=== PATIENT | male | born 1995 | race Two or more races ===

== ENCOUNTER 2021-08-05 19:02 | Emergency (ER) | payer MEDICAID, SELFPAY ==
--- NOTE | ~2021-08-05 | XR_ITS ---
EXAMINATION: XR HAND, LEFT CLINICAL INFORMATION: Laceration at the anterior 3rd through 5th metacarpophalangeal joints. COMPARISON: None TECHNIQUE: PA, lateral, and oblique views of the left hand. FINDINGS: No radiopaque foreign body. No acute osseous abnormality. No fracture or dislocation. Normal carpal alignment. No joint space narrowing or marginal osteophytes. No osseous erosion. XR/XR hand LT min 3V IMPRESSION: Unremarkable examination.
[2021-08-05 20:05] VITALS: BP 122/80; PULSE 82; RESP 18; TEMP 36.4; O2SAT 99; BMI 23.7
[2021-08-05 20:18] VITALS: BP 130/93; PULSE 91; TEMP 37.4; O2SAT 98
--- NOTE | 2021-08-05 20:52 | ED.WOUNDLAC ---
HPI - Wound/Laceration General Chief Complaint: Wound/Laceration Stated Complaint: laceration on L hand Time Seen by Provider: 08/05/21 20:19 Source: patient Mode of arrival: ambulatory Limitations: no limitations History of Present Illness HPI narrative: 26-year-old male right-handed here with reports of laceration to the left hand. Patient tells me he went to catch a basketball with his left hand when his left 4th finger hyper extended causing a laceration to the base of the finger. No weakness, numbness, tingling. Last tetanus one year ago Related Data Previous Rx's Medication Instructions Recorded oxycodone 5 mg tablet 5 mg PO Q8H PRN #5 tab 08/05/21 Allergies Allergy/AdvReac Type Severity Reaction Status Date / Time No Known Allergies Allergy Verified 08/05/21 20:22 Review of Systems Review of Systems: Yes all other systems are reviewed and are negative Constitutional: Constitutional: Reports no additional constitutional complaints, Denies body ache(s), Denies chills, Denies fever(s), Denies headache(s) and Denies weakness Eyes: Eyes: Reports no additional eye complaints and Denies change in vision ENT: Reports system reviewed and no additional complaints, except as documented, Denies dizziness, Denies headache(s), Denies nasal congestion, Denies nasal discharge and Denies neck pain Cardiovascular: Cardiovascular: Reports no additional cardiovascular complaints, Denies chest pain, Denies leg edema and Denies dyspnea Respiratory: Respiratory: Reports no additional respiratory complaints, Denies cough and Denies dyspnea Gastrointestinal: Gastrointestinal: Reports no additional gastrointestinal complaints, Denies abdominal pain, Denies diarrhea, Denies nausea and Denies vomiting Genitourinary: Genitourinary: Denies urinary incontinence Musculoskeletal: Musculoskeletal: Reports no additional musculoskeletal complaints, Denies back pain, Reports arthralgias, Denies joint swelling, Denies neck pain, Denies numbness and Denies tingling Integumentary/Breasts: Skin/Breast: Reports system reviewed and no additional complaints, except as docu and Denies rash Comments: +lac Neurologic: Reports system reviewed and no additional complaints, except as documented, Denies Abnormal speech present, Denies dizziness, Denies headache(s), Denies numbness, Denies tingling and Denies weakness [facility] Past Medical History Attestation statement: The following information was validated with the patient. Source: old records reviewed and nursing notes reviewed Social History Social History Advance Directives: No Advance Directives Information Provided: No Physical Exam Vital Signs: Vital Signs: Last Vital Signs Temp 99.4 F 08/05/21 20:18 Pulse 91 08/05/21 20:18 Resp 18 08/05/21 20:05 BP 130/93 H 08/05/21 20:18 Pulse Ox 98 08/05/21 20:18 BMI result Body Mass Index 23.7 Const: General: cooperative, healthy appearing, comfortable and no acute distress Orientation/consciousness: patient oriented x3 Limitations: no limitations HEENT: Head: Yes normal to inspection Ears: hearing grossly normal bilaterally General nose exam: Normal external nose present Face and sinus: Yes normal facial exam Mouth: Normal oral and palatal mucosa present Throat: Yes posterior oropharynx normal Eyes: General: appearance normal, both eyes and all related structures Pupils: Equal, round and reactive pupils present Neck: Neck: Yes normal visual inspection Chest: Chest palpation & inspection: normal inspection of the chest Resp: Effort & Inspection: normal respiratory effort Auscultation: clear to auscultation bilaterally Cardio: Rate: regular rate Rhythm: regular rhythm Peripheral pulses: Peripheral pulses 2+ throughout GI: Inspection: Yes normal to inspection Palpation (GI): Soft to palpation and nontender Auscultation: normal bowel sounds Back/Spine/Pelvis: Thoracic/Lumbar Spine: thoracic and lumbar spine normal to inspection Skin: General skin exam: no rashes or lesions noted Neuro: General: patient oriented x3, no focal motor deficits and normal sensation to monofilament Cranial nerves: Yes Equal, round and reactive pupils present Cognition (Neuro): normal cognition Speech: No Abnormal speech present Gait exam (Neuro): Normal gait present Motor exam (neuro): 5/5 motor strength present throughout Extrem: General: Yes normal to inspection Hand/finger images: 1. Laceration which is on the volar aspect and extends interphalangeal to the dorsal aspect 5cm Patient able to flex and extend the digit with no difficulty 2. Course Course Course Narrative: 26-year-old male who is right-handed here with laceration to the base of the 4th digit which extends in between the 3rd and 4th digit over the dorsal aspect of the 4th digit. Bleeding is controlled. There is full range of motion of the digit with no tendon involvement. Neurovascularly intact distally to the injury. X-rays were ordered which show no bony abnormality. See procedure note for wound repair. Tetanus is already up-to-date. Patient placed in a soft finger foam splint. We discussed suture care at home. Reviewed worrisome signs and symptoms and when to return to the emergency department. Comfortable discharge home. MDM - Wound/Laceration Medical Records Attestation: I reviewed the patient's medical records. Lab Data Attestation: I reviewed the patient's lab results. Imaging Data hand xray: Attestation: I personally reviewed and interpreted this imaging study as follows: Radiologist's impression: XAMINATION: XR HAND, LEFT CLINICAL INFORMATION: Laceration at the anterior 3rd through 5th metacarpophalangeal joints. COMPARISON: None? TECHNIQUE: PA, lateral, and oblique views of the left hand. FINDINGS: No radiopaque foreign body. No acute osseous abnormality. No fracture or dislocation. Normal carpal alignment. No joint space narrowing or marginal osteophytes. No osseous erosion.? XR/XR hand LT min 3V IMPRESSION: Unremarkable examination. Procedures Laceration Laceration 1: Site: hand Side (If applicable): left (4th digit) Size (cm): 5 Description: linear Depth: simple, single layer Local Anesthetic: lidocaine 2% Amount of anesthesia used (mL): 15 Pre-repair: wound explored, irrigated extensively and deep structures intact Skin layer closed with: vicryl Size (cm): 5-0 Number of sutures: 11 Technique: simple, interrupted Discharge Plan Discharge Clinical Impression: Laceration Patient Disposition: Home, Self-Care Instructions: Finger Laceration (ED) Additional Instructions: Sutures out in 7-10 days Wash the area with soap and water daily Take Tylenol or Motrin for pain as needed. Do not bend the finger Water may run over the finger and you may take showers normally but no soaking Prescriptions: New oxycodone 5 mg tablet 5 mg PO Q8H PRN (Reason: pain) Qty: 5 0RF Referrals: Po,Erick Palmer MD [Primary Care Provider] - 1 week (as needed) Stand Alone Forms: Work/School Release Interventions: ED Discharge Assessment Last Done: 05/24/22 22:10 Discharge Date/Time: 08/05/21 22:13
[2021-08-05] MEDS: Lidocaine HCl 2 % MPF 5 ML VIAL SUBCUT ×3 (22:09→22:13)
== END 2021-08-05 22:13 | disposition home or self-care (01) ==
PROVIDERS: Emergency Provider Internal Medicine; PCP Internal Medicine
DX: S61.215A Laceration without foreign body of left ring finger without damage to nail, initial encounter (principal); Y29.XXXA Contact with blunt object, undetermined intent, initial encounter; Y93.9 Activity, unspecified; Y92.9 Unspecified place or not applicable; Y99.9 Unspecified external cause status
CPT/HCPCS: 12002; 73130; 99282; 99284

== ENCOUNTER → 2022-01-01 08:21 | Outpatient (BNVA) | payer OTHER, SELFPAY | PROVIDERS: PCP Hospitalist; Visit Provider Internal Medicine | DX: M25.562 Pain in left knee (principal) | CPT/HCPCS: 73564; 99213 ==

== ENCOUNTER → 2022-01-08 07:56 | Outpatient (BNVA) | payer OTHER, SELFPAY | PROVIDERS: PCP Hospitalist; Visit Provider Internal Medicine | DX: M25.562 Pain in left knee (principal) | CPT/HCPCS: 99213 ==

== ENCOUNTER 2022-05-19 10:51 | Emergency (ER) | payer OTHER, SELFPAY ==
--- NOTE | ~2022-05-19 | XR_ITS ---
EXAMINATION: XR ANKLE, RIGHT CLINICAL INFORMATION: Fall with pain COMPARISON: None TECHNIQUE: AP, lateral, and mortise views of the right ankle. FINDINGS: No fracture or dislocation. The ankle mortise is congruent. Ankle joint effusion may be present. There is lateral soft tissue swelling. XR/XR ankle RT min 3V IMPRESSION: Lateral soft tissue swelling with possible ankle joint effusion. No fracture or malalignment.
[2022-05-19 11:12] VITALS: BP 126/56; PULSE 57; RESP 18; TEMP 36.8; O2SAT 99; BMI 24.4
--- NOTE | 2022-05-19 11:15 | ED.LOWEXIN ---
HPI - Extremity Injury (Lower) General Chief Complaint: Extremity Injury, Lower Stated Complaint: R ankle inj Time Seen by Provider: 05/19/22 12:09 Source: patient Mode of arrival: ambulatory Limitations: no limitations History of Present Illness HPI Narrative: Patient is a 26 year old male presenting to the ED for evaluation of traumatic right ankle pain 2 days ago while playing basketball. Has been able to weight bear, no numbness or tingling. pain worse with weight bearing. Denies redness, swelling, fevers, chills Related Data Previous Rx's Medication Instructions Recorded oxycodone 5 mg tablet 5 mg PO Q8H PRN pain #5 tabs 08/05/21 Allergies Allergy/AdvReac Type Severity Reaction Status Date / Time No Known Allergies Allergy Verified 08/05/21 20:22 Review of Systems Review of Systems: Yes all other systems are reviewed and are negative [facility] Past Medical History Attestation statement: The following information was validated with the patient. Source: old records reviewed Social History Social History Advance Directives: No Advance Directives Information Provided: No Physical Exam Vital Signs: Vital Signs: Last Vital Signs Temp 98.2 F 05/19/22 11:12 Pulse 55 05/19/22 12:10 Resp 18 05/19/22 12:10 BP 125/59 L 05/19/22 12:10 Pulse Ox 100 05/19/22 12:10 O2 Del Method 05/19/22 12:10 BMI result Body Mass Index 24.4 Appearance: Alert.?Oriented to person, place and time. No acute distress.?Normal affect.? CVS: Heart sounds normal. Normal heart rate and rhythm.? Pulses normal.?? Respiratory: No respiratory distress.? Lung sounds clear to auscultation bilaterally?? Abdomen: Soft and non-tender. Skin: Skin warm and dry.? Normal skin color.? Extremities: No lower extremity edema.? Right lateral malleolus swelling without erythema or warmth. 2+ DP/PT pulse bilaterally. No deformity Neuro: Moves all extremities spontaneously. Sensation intact bilaterally. Ambulates with slow antalgic gait. Medical Decision Making Medical Decision Making MDM Narrative: Patient is a 26-year-old male presents emergency department for evaluation traumatic right ankle pain. Is able to weight bear. Extremities neurovascularly intact distally. X-ray imaging reveals no acute fracture dislocation, there is however presence of joint effusion. Discussed appropriate management rest, ice, compression, elevation, acetaminophen/ibuprofen as needed for pain. Although cannot completely exclude ligamentous injury, symptoms at this time was consistent with wound sprain, likely to improve with conservative treatment. School examination is not consistent with septic joint. Discussed worsening signs and symptoms or re-evaluation the emergency department. All questions answered. Patient stable for discharge. Differential Diagnosis Differential Diagnoses: The differential diagnosis associated with the presentation includes (Fracture, dislocation, ligamentous injury) Independent Interpretation I performed an independent interpretation of an: Plain X-Ray (I personally interpreted x-ray imaging and agree with radiologist impression) Radiology Impression Discussion of test interpretation with radiology: I have reviewed the radiologist's reading. Radiologist Impression: XR/XR ankle RT min 3V IMPRESSION: Lateral soft tissue swelling with possible ankle joint effusion. No fracture or malalignment. Prescription Management I considered prescription management with: Pain Medication Discharge Plan Discharge Clinical Impression: Ankle sprain Patient Disposition: Home, Self-Care Instructions: Ankle Sprain (ED) Additional Instructions: As we discussed, your x-ray does not show any evidence of fracture dislocation this is very reassuring. You may continue to wear the brace to this ankle to help with support and pain. In addition please be sure to rest over the next few days, apply ice for 10-15 minutes 4-6 times daily, elevate your leg when possible. You can take ibuprofen 200 mg, 3 tablets (600mg) every 6-8 hours as needed for pain, in addition to Tylenol 500 mg, 2 tablets (1,000mg) every 4-6 hours as needed for pain, but not to exceed 3 doses daily (3,000mg).? Follow-up with your primary care provider as needed for persistent symptoms. Prescriptions: No Action oxycodone 5 mg tablet 5 mg PO Q8H PRN (Reason: pain) Qty: 5 0RF Referrals: ED Physician,Generic [Physician] -
[2022-05-19 12:10] VITALS: BP 125/59; PULSE 55; RESP 18; O2SAT 100
== END 2022-05-19 12:20 | disposition home or self-care (01) ==
PROVIDERS: Emergency Provider Emergency Medicine
DX: S93.401A Sprain of unspecified ligament of right ankle, initial encounter (principal); Y93.67 Activity, basketball; Y93.9 Activity, unspecified; Y92.9 Unspecified place or not applicable; Y99.9 Unspecified external cause status
CPT/HCPCS: 73610; 99282; 99283